=== PATIENT | female | born 1985 | race African-American/Black ===

== ENCOUNTER 2020-05-14 19:25 | Emergency (ER) | payer SELFPAY ==
[~2020-05-14] VITALS: Ht 170.2 cm; Wt 113.0 kg
[~2020-05-14 19:25] MED LIST: ALBU17AE26; METF500T
[2020-05-14] MEDS ORDERED: MIDAZOLAM HCL 2 MG/2 ML VIAL IM ONE (20:00)
[2020-05-14 20:43] LABS: BASOPHILS % 0.5 % (0.0-2.0); EOSINOPHILS % 2.6 % (0.0-5.0); HEMATOCRIT. 43.9 % (36.0-48.0); HEMOGLOBIN. 15.4 g/dL (12.0-16.0); LYMPHOCYTES % 17.2 % (20.0-50.0); MEAN CORPUSCULAR HEMOGLOBIN 31.4 pg (28.0-32.0); MEAN PLATELET VOLUME 8.7 fl (7.4-10.4); MONOCYTES % 11.1 % (2.0-8.0); NEUTROPHILS % 68.6 % (40.0-76.0); PLATELET 244 x1000/uL (130-400); RED BLOOD CELL COUNT 4.93 mill/uL (4.2-5.4); RED CELL DISTRIBUTION WIDTH 13.2 % (11.6-14.6)
[2020-05-14 20:51] LABS: CHLORIDE 104 mEq/L (98-107)
[2020-05-14 20:55] LABS: ETHANOL BLOOD < 10 mg/dL
[2020-05-15 01:00] VITALS: BP 132/84
== END 2020-05-15 01:10 | disposition home or self-care (01) ==
LOC: ER 19:25
DX: R41.82 Altered mental status, unspecified (principal); R45.1 Restlessness and agitation; Z88.0 Allergy status to penicillin
CPT/HCPCS: 36415; 80053; 80307; 80320; 80329; 85025; 96372; 99285; J2250; G0480